=== PATIENT | male | born 1965 | race Caucasian/White ===

== ENCOUNTER 2016-06-04 14:26 | Emergency (ER) | payer OTHER ==
[~2016-06-04] VITALS: Ht 167.6 cm; Wt 98.4 kg
[~2016-06-04 14:26] MED LIST: AMIT50 PO; ASPI81TA82 PO; CELE100C PO; CLON.1 PO; LISI-363 PO; NEUR800T PO; OMEP20TA39 PO; OXYC5 PO; SOMA350T PO; ZOLP10TA3 PO
[2016-06-04 14:44] VITALS: BP 115/76; PULSE 72; RESP 16; TEMP 99.3; O2SAT 98
[2016-06-04] MEDS ORDERED: OMEP20TA PO (14:52)
[2016-06-04] MEDS ORDERED: GABA800T PO (14:52)
[2016-06-04] MEDS ORDERED: AMIT1TAB79 PO (14:52)
[2016-06-04] MEDS ORDERED: CLON0.1T PO (14:52)
[2016-06-04] MEDS ORDERED: PERC10TA27 PO (14:52)
[2016-06-04] MEDS ORDERED: ASPI81CH37 CHEW (14:52)
[2016-06-04] MEDS ORDERED: LISI-515 PO (14:52)
[2016-06-04] MEDS ORDERED: SOMA250T PO (14:52)
[2016-06-04] MEDS ORDERED: MSIR30 PO (14:52)
[2016-06-04] MEDS ORDERED: AMBI10TA PO (14:52)
[2016-06-04] MEDS ORDERED: CLOT1CRE6 TOPICAL (16:16)
--- NOTE | 2016-06-04 16:23 | PD ---
HPI Chief Complaint: Skin Problem Time Seen by Provider: 16:16 Travel History International Travel<30 days: No Contact w/Intl Traveler<30days: No Traveled to known affect area: No History of Present Illness HPI 51-year-old male presents to the emergency room for evaluation of itchy rash to his right medial forearm for the past 2 weeks. Patient states it is extremely itchy and somewhat painful. He has been applying topical anti-itch creams and hydrocortisone cream without relief in symptoms. He does not remember getting bitten by anything. He has a history of shingles and believes it may be reoccurring because he has been stressed lately. PFSH Past Medical History Hx Anticoagulant Therapy: Yes (81 mg asa) Arthritis: No Asthma: No Autoimmune Disease: No Anxiety: No Depression: Yes Heart Rhythm Problems: No Cardiovascular Problems: Yes (begum 2014; htn) High Cholesterol: No Chemotherapy: No Chest Pain: No Congestive Heart Failure: No COPD: Yes Cerebrovascular Accident: Yes (2014) Diabetes: No Diminished Hearing: No Endocrine: No Gastrointestinal Disorders: No GERD: No Hepatitis: Yes (HEPATITIS C) Hiatal Hernia: No Heparin Induced Thrombocytopen: No Herniated Disk: Yes Hypertension: Yes Immune Disorder: No Implanted Vascular Access Dvce: No Kidney Stones: No Musculoskeletal: Yes (LUMBAR DISC X2 WW/ CHRONIC BACK AND LLE PAIN: BILAT CARPAL TUNNEL) Psychiatric: No Reproductive: No Respiratory: Yes (asthma; copd) Immunizations Current: Yes Myocardial Infarction: Yes Radiation Therapy: No Renal Failure: No Sickle Cell Disease: No Sleep Apnea: No Thyroid Disease: No Ulcer: No Influenza Vaccination: Yes Past Surgical History Abdominal Surgery: Yes (hernia rep) Arteriovenous Shunt: No Cardiac Surgery: No Ear Surgery: No Endocrine Surgery: No Eye Surgery: No Genitourinary Surgery: Yes Gynecologic Surgery: No Insulin Pump: No Joint Replacement: No Neurologic Surgery: No Oral Surgery: No Pacemaker: No Thoracic Surgery: No Tonsillectomy: Yes Social History Alcohol Use: Yes (RARE) Tobacco Use: Yes (1 PPD) Substance Use: No Allergies-Medications (Allergen,Severity, Reaction): Coded Allergies: Codeine (Unverified Allergy, Severe, Itching, 06/04/16) Benadryl (Verified Allergy, Intermediate, Itching, 06/04/16) Darvocet-N 100 (Verified Allergy, Mild, 06/04/16) Flexeril (Verified Allergy, Mild, 06/04/16) Penicillin (Verified Allergy, Mild, Rash, 06/04/16) Toradol (Verified Allergy, Mild, 06/04/16) Ultram (Verified Allergy, Mild, 06/04/16) Reported Meds & Prescriptions Reported Meds & Active Scripts Active Reported Morphine IR (Morphine Sulfate) 30 Mg Tab 30 Mg PO DAILY Percocet (Oxycodone-Acetaminophen) 10-325 mg Tab 1 Tab PO Q6H PRN Ambien (Zolpidem Tartrate) 10 Mg Tab 10 Mg PO HS PRN Omeprazole 20 Mg Tab 20 Mg PO DAILY PRN Gabapentin 800 Mg Tab 800 Mg PO TID Lisinopril 20 Mg Tab 20 Mg PO HS Elavil (Amitriptyline HCl) 25 Mg Tab 50 Mg PO HS Clonidine (Clonidine HCl) 0.1 Mg Tab 0.1 Mg PO BID PRN Soma (Carisoprodol) 250 Mg Tab 250 Mg PO TID PRN Aspirin Low Dose (Aspirin) 81 Mg Chew 81 Mg CHEW DAILY Review of Systems Except as stated in HPI: all other systems reviewed are Neg Physical Exam Narrative GENERAL: Well-nourished, well-developed male in no acute distress. Afebrile. Ambulatory. SKIN: Warm and dry. There is an annular 2 cm lesion to the right medial forearm that is shiny with central clearing. No surrounding erythema. Nontender to palpation. No evidence of infection or impetiginization. HEAD: Normocephalic. EYES: No scleral icterus. No injection or drainage. Data Data Last Documented VS Vital Signs Date Time Temp Pulse Resp B/P Pulse Ox O2 Delivery O2 Flow Rate FiO2 06/04/16 14:44 99.3 72 16 115/76 98 MDM Medical Decision Making Medical Screen Exam Complete: Yes Emergency Medical Condition: Yes Medical Record Reviewed: Yes Differential Diagnosis Tinea corporis versus shingles versus contact dermatitis Narrative Course 51-year-old male presents to the emergency room for evaluation of an itchy rash to his right medial forearm for the past 2 weeks. Physical exam reveals an annular 2 cm lesion to the right medial forearm that is shiny with central clearing. No surrounding erythema. Nontender to palpation. No evidence of infection or impetiginization. History and physical exam is most consistent with tinea corporis. Patient discharged with prescription for clotrimazole told to follow up with a primary care physician or return to the emergency room for worsening symptoms. He understands and agrees to plan. Diagnosis Primary Impression: Tinea corporis Referrals: Primary Care Physician Patient Instructions: General Instructions, Tinea Corporis (ED) Additional Instructions: Rest and drink plenty of fluids. Apply clotrimazole as directed, for up to 2 weeks. Follow-up with a primary care physician. Return to the emergency room for worsening symptoms. Med/Other Pt SpecificInfo: Prescription(s) given Scripts Clotrimazole Topical (Clotrimazole Anti-Fungal Topical)1% Cream1 Applic TOPICAL Q12HR #1 TUBE Ref 0 Prov:Bibiana Elliott MD 06/04/16 Disposition: 01 DISCHARGE HOME Condition: Stable Shayna Matthews Jun 04, 2016 16:22
== END 2016-06-04 16:28 | disposition home or self-care (01) ==
LOC: PHEFT 14:26
DX: B35.4 Tinea corporis (principal)
CPT/HCPCS: 99282